=== PATIENT | male | born 1990 | race Caucasian/White ===

== ENCOUNTER 2017-05-11 14:15 | Emergency (ER) | payer SELFPAY ==
[2017-05-11 14:18] VITALS: BP 182/93; BMI 40.6
[2017-05-11] MEDS ORDERED: XYLOCAINE 1% and EPINEPHRINE 1:100,000 ONE (14:37)
--- NOTE | 2017-05-11 14:40 | DR.LACERAT ---
HPI - Time Seen Time seen: 14:35 - Primary Care Physician Primary Care Physician: NFD - Complaints Chief Complaint Doctors Comments: Patient was doing some work on his riding mower and his son accidentally hit the mower in such a way that the blade lacerated the right forearm superficallly laterally. Chief Complaint:: LACERATION TO RIGHT FOREARM. INCIDENT OCCURED WITH ZERO TURN LAWNMOWER. - Source History Provided: Patient - Mode of Arrival Mode of Arrival: Ambulatory - Timing Onset of Chief Complaint: 05/11/17 PMH - PMH Past Medical History: No Past Medical History: Hypertension, PUD Past Surgical History: Yes Surgical History: Appendectomy - Family History History of Family Medical Conditions: Yes Family Medical History: Diabetes Mellitus - Social History Does patient currently use any type of tobacco product: Yes Have you used tobacco products in the last 12 months: Yes Type of Tobacco Use: Cigarettes Does any household member use tobacco: No Alcohol Use: None Do you use any recreational Drugs:: No Lives With: Spouse Lives Where: Home - infectious screening In the last 2 months have you had wt loss of >10#?: NO Have you had fever, night sweats or hemotysis?: No Have you traveled outside the country in the last 6 months?: No Isolation: Standard ROS - Review of Systems Eyes: No Symptoms Reported ENTM: No Symptoms Reported Respiratoy: No Symptoms Reported Cardiovascular: No Symptoms Reported Gastrointestinal/Abdominal: No Symptoms Reported Genitourinary: No Symptoms Reported Neurological: No Symptoms Reported Musculoskeletal: Arm (right forearm with superfical laceration) Integumentary: Other (as above) Endocrine: No Symptoms Reported Psychiatric: No Symptoms Reported All Other Systems: Reviewed and Negative PE - Vital Signs Vitals: Temperature 98.1 F Pulse Rate 87 Respiratory Rate 18 Blood Pressure 182/93 O2 Sat by Pulse Oximetry 97 - General General Appearance: Alert, In No Apparent Distress - Head Head Exam: Normal Inspection, Atraumatic - Eyes Eye exam: Normal Appearance, PERRL, EOMI - ENT ENT Exam: Normal Exam - Neck Neck Exam: Normal Inspection, Full ROM - Chest Chest Inspection: Normal Inspection - Respiratory Respiratory Exam: Normal Lung Sounds Bilat Respiratory Exam: Bilateral Clear to Auscultation - Cardiovascular Cardiovascular Exam: Regular Rate, Normal Rhythm - Abdominal Exam Abdominal Exam: Normal Inspection Abdominal Tenderness: negative: RUQ, RLQ, LUQ, LLQ, Epigastrium, Suprapubic, Diffuse, Mild, Moderate, Severe, Other - Extremities Extremities Exam: Normal Inspection, Full ROM - Back Back Exam: Normal Inspection, Full ROM - Neurologic Neurological Exam: Alert, Oriented X3, CN II-XII Intact - Psychiatric Psychiatric Exam: Normal Affect, Normal Mood - Skin Skin Exam: Warm, Dry, Intact Type of Lesion: Rash, Laceration (right forearm) Description: Size Course - Reevaluation 1st: Improved ROR - XRAY XRAY Interpreted by: Radiologist (Forearm: negative) Procedures - Laceration/Wound Repair Right Forearm Wound Length (cm): 6 Wound's Depth, Shape: Superficial, Linear Wound Explored: no foreign body removed Betadine Prep?: Yes Anesthesia: 1% Lidocaine w/ Epi Volume Anesthetic (ccs): 10 Wound Repaired With: Dermabond Suture Size/Type: 4:0, Ethilion - Diagnosis Discharge Problem: Laceration of forearm, right Qualifiers: Encounter type: initial encounter Qualified Code(s): S51.811A - Laceration without foreign body of right forearm, initial encounter - Discharge Plan Condition: Stable - Follow ups/Referrals Follow ups/Referrals: NFD,None [Primary Care Provider] - 3 days - Instructions
--- NOTE | 2017-05-11 15:21 | RAD ---
FOREARM RADIOGRAPHS: CLINICAL HISTORY: 26-year-old male with laceration to the right forearm COMPARISON: None. FINDINGS: Frontal and lateral views of the right forearm were obtained. These demonstrate no acute f racture or malalignment. Circumferential edema about the distal right forearm. The wrist and elbow articulations are congruent on provided views. The mineralization is maintained. There is no aggres sive bone lesion or abnormal periosteal reaction. There is no radiopaque foreign body, soft tissue calcification or gas. IMPRESSION: No acute fracture or osseous abnormality demonstrated on right forearm radiographs with circumferent ial distal edema. Reported By:
[2017-05-11] MEDS ORDERED: NS IRRIGATION 1000 ML 1,000 ML ONE (15:46)
[2017-05-11] MEDS ORDERED: NEOSPORIN OINT TOP ONE (16:05)
[2017-05-11] MEDS ORDERED: NEOSPORIN OINT ONE (16:05)
[2017-05-11] MEDS ORDERED: ADACEL TDaP IM ONE ×2 (16:05→16:06)
== END 2017-05-11 16:15 | disposition home or self-care (01) ==
LOC: ER 14:30
PROC: 0XQ80ZZ Repair Right Upper Arm, Open Approach (ICD-10-PCS; principal; 2017-05-11)
DX: S51.811A Laceration without foreign body of right forearm, initial encounter (principal); W45.8XXA Other foreign body or object entering through skin, initial encounter; Y92.9 Unspecified place or not applicable
CPT/HCPCS: 12002; 73090; 90471; 99282; J2001